=== PATIENT | male | born 1960 | race Caucasian/White ===

== ENCOUNTER 2023-10-13 14:31 | Outpatient (REF) | payer OTHER, SELFPAY ==
[2023-10-13 19:31] LABS: HCT 39.7 % (40.0-50.0); HGB 13.3 g/dL (13.5-17.5); MCH 30.6 pg (27.0-33.0); MCHC 33.5 % (32.0-36.0); MCV 91 fL (80-95); MPV 11.3 fL (8.0-11.0); Platelet Count 162 10^3/uL (130-400); RBC 4.35 10^6/uL (4.36-5.78); RDW 12.2 % (11.8-14.1); RDW-SD 40.7 fL; WBC 7.07 10^3/uL (4.4-10.8)
[2023-10-13 19:38] LABS: Hemoglobin A1C 5.9 % (<5.7)
[2023-10-13 20:09] LABS: ALT 23 U/L (16-63); AST 17 U/L (15-37); Albumin 4.1 g/dL (3.4-5.0); Alkaline Phosphatase 91 U/L (46-116); Anion Gap 8.1 mmol/L (3-11); BUN 19 mg/dL (7-18); Bilirubin, Total 0.6 mg/dL (0.2-1.0); CO2 26.9 mmol/L (21.0-32.0); CREATININE 1.2 mg/dL (0.70-1.30); Calcium 9.5 mg/dL (8.5-10.1); Calculated LDL 72 mg/dL (<100); Chloride 104 mmol/L (98-107); Cholesterol 128 mg/dL (<200); Estimated GFR 68.38 (mL/min/1.73m2); Glucose 127 mg/dL (74-106); HDL Cholesterol 37 mg/dL (40-60); Potassium 4.2 mmol/L (3.5-5.1); Sodium 139 mmol/L (136-145); TSH 1.47 uIU/mL (0.36-3.74); Total Protein 7.2 g/dL (6.4-8.2); Triglyceride 99 mg/dL (<150); Vitamin B12 186 pg/mL (193-986)
== END 2023-10-13 14:32 | disposition home or self-care (01) ==
LOC: NCHCN 14:31
PROVIDERS: Visit Provider Physician Assistant
DX: R41.3 Other amnesia (principal); E78.5 Hyperlipidemia, unspecified
CPT/HCPCS: 80053; 80061; 85027; 82607; 83036; 84443

== ENCOUNTER 2024-11-22 12:43 | Outpatient (REF) | payer MEDICARE, MEDICAID, SELFPAY ==
[2024-11-22 19:09] LABS: Abs Immature Grans 0.05 10^3/uL (0.0-0.06); Absolute Basophil Count 0.04 10^3/uL (0.0-0.2); Absolute Eosinophil Count 0.25 10^3/uL (0.0-0.7); Absolute Lymphocyte Count 1.38 10^3/uL (1.2-3.4); Absolute Monocyte Count 0.72 10^3/uL (0.1-0.8); Absolute Neutrophil Count 4.17 10^3/uL (1.2-6.7); Basophils % 0.6 %; Eosinophils % 3.8 %; HCT 39.1 % (40.0-50.0); HGB 13.2 g/dL (13.5-17.5); Immature Grans % 0.8 %; Lymphocytes % 20.9 %; MCH 31.4 pg (27.0-33.0); MCHC 33.8 % (32.0-36.0); MCV 93 fL (80-95); MPV 10.7 fL (8.0-11.0); Monocytes % 10.9 %; Platelet Count 158 10^3/uL (130-400); RBC 4.21 10^6/uL (4.36-5.78); RDW 12.2 % (11.8-14.1); RDW-SD 41.7 fL; WBC 6.61 10^3/uL (4.4-10.8)
[2024-11-22 19:55] LABS: ALT 26 U/L (16-63); AST 24 U/L (15-37); Albumin 4.1 g/dL (3.4-5.0); Alkaline Phosphatase 89 U/L (46-116); BUN 15 mg/dL (7-18); Bilirubin, Total 0.53 mg/dL (0.2-1.0); CREATININE 1.1 mg/dL (0.70-1.30); Calcium 9.2 mg/dL (8.5-10.1); Chloride 107 mmol/L (98-107); Estimated GFR 74.96 (mL/min/1.73m2); Glucose 120 mg/dL (74-106); Sodium 140 mmol/L (136-145); Total Protein 7.1 g/dL (6.4-8.2); Vitamin B12 841 pg/mL (193-986)
[2024-11-22 20:21] LABS: Folate 10.8 ng/mL (8.6-20.0)
[2024-11-23 19:29] LABS: PSA, Screening 0.4 ng/mL (<=4.5)
[2024-11-25 09:40] LABS: HIV-1/2 Ag & Ab Screen Negative (Negative)
== END 2024-11-22 12:44 | disposition home or self-care (01) ==
LOC: NCHCN 12:43
PROVIDERS: Visit Provider Physician Assistant
DX: I10 Essential (primary) hypertension (principal); E53.8 Deficiency of other specified B group vitamins; Z11.4 Encounter for screening for human immunodeficiency virus [HIV]; Z12.5 Encounter for screening for malignant neoplasm of prostate
CPT/HCPCS: 80053; 84153; 87389; 82607; 82746; 85025